=== PATIENT | female | born 1945 | race Caucasian/White ===

== ENCOUNTER → 2016-12-07 | Outpatient (CLI) | payer MEDICARE ==
[~2016-12-07] MED LIST: /PRAV20TA; ALEN10TA2; CALCCHW12; LISI10TA4; MULTIVIT; TYLE167L PO; VITAMIN D50000 UNT
--- NOTE | 2016-12-07 19:53 | REPMRS ---
Patient History The patient states she had a clinical breast exam in 12/19 Patient is postmenopausal. Family history of prostate cancer in father at age 50 or over. Digital Woman Screen Mammo: December 07, 2016 - Exam #: [id number] Bilateral CC and MLO view(s) were taken. Technologist: Jacklyn Parekh, Technologist Prior study comparison: July 01, 2014, digital woman screen mammo performed at [facility]. May 22, 2013, digital woman screen mammo performed at [facility]. May 08, 2012, digital woman screen mammo performed at [facility]. FINDINGS: There are scattered fibroglandular densities. There has been no change in the appearance of the mammogram from the prior studies. A right-sided ventriculoperitoneal shunt catheter overlies the medial aspect of the right breast as before. There is a mild amount of scattered fibroglandular density which is fairly symmetric. There is no interval development of dominant mass, architectural distortion, or clustered microcalcification suggestive of malignancy. ASSESSMENT: BI-RADS/ACR category 1 mammogram. Negative. Recommendation Routine screening mammogram in 1 year (for women over age 40). This mammogram was interpreted with the aid of an FDA-approved computer-aided dectection system. Electronically Signed By: Prasanna Peter MD 12/07/161951
== END ==
LOC: M WHC 10:14
PROVIDERS: ATTEND Nurse Practitioner Women's Health
DX: Z01.419 Encounter for gynecological examination (general) (routine) without abnormal findings (principal); Z12.31 Encounter for screening mammogram for malignant neoplasm of breast; Z78.0 Asymptomatic menopausal state; Z12.12 Encounter for screening for malignant neoplasm of rectum; Z80.42 Family history of malignant neoplasm of prostate
CPT/HCPCS: 82270; G0101; G0202

== ENCOUNTER 2017-11-03 07:51 | Day surgery (SDC) | payer MEDICARE ==
[2017-11-03] MEDS: NS 1,000 ML IV ×2 (08:15)
[2017-11-03] MEDS ORDERED: PROPOFOL 200 MG/20 ML VIAL As Ordered ×4 (08:15→09:01)
[2017-11-03] MEDS ORDERED: LIDOCAINE 2% INJ 100 MG/5 ML SDV (FOR ANES.) As Ordered ×2 (08:36)
== END 2017-11-03 09:30 | disposition home or self-care (01) ==
LOC: M OPP 07:51
DX: Z12.11 Encounter for screening for malignant neoplasm of colon (principal); Z86.010 Personal history of colon polyps; D12.2 Benign neoplasm of ascending colon; D12.5 Benign neoplasm of sigmoid colon; K57.30 Diverticulosis of large intestine without perforation or abscess without bleeding; Z98.890 Other specified postprocedural states; E78.5 Hyperlipidemia, unspecified; M19.90 Unspecified osteoarthritis, unspecified site; M81.0 Age-related osteoporosis without current pathological fracture; Z78.0 Asymptomatic menopausal state; J44.9 Chronic obstructive pulmonary disease, unspecified; Z86.69 Personal history of other diseases of the nervous system and sense organs; F17.210 Nicotine dependence, cigarettes, uncomplicated; Z79.899 Other long term (current) drug therapy; Z80.42 Family history of malignant neoplasm of prostate
CPT/HCPCS: 45385

== ENCOUNTER → 2019-02-14 | Outpatient (CLI) | payer MEDICARE ==
[~2019-02-14] MED LIST changes: -/PRAV20TA; +ACET-683 PO; +ADV250INH INH; +CALC600T31 PO; +PRAV1TAB39; +SIMV20TA2 PO; +TRAZ-252 PO
--- NOTE | 2019-02-14 13:56 | REP ---
LEFT FOOT SERIES: Four views of the left foot performed. There is a nondisplaced transverse fracture of the base of the fifth metatarsal. No other acute fracture or dislocation is seen. There appear to be two tiny metallic foreign bodies in the soft tissues at the plantar aspect of the fifth proximal phalanx. Electronically Signed by Jimenez Bearden MD 02/14/2019 04:44 P
== END ==
LOC: M LRY 12:51
PROVIDERS: ATTEND Nurse Practitioner Family
DX: S92.355A Nondisplaced fracture of fifth metatarsal bone, left foot, initial encounter for closed fracture (principal); W10.9XXA Fall (on) (from) unspecified stairs and steps, initial encounter; Y92.9 Unspecified place or not applicable
CPT/HCPCS: 73630; G0463

== ENCOUNTER → 2021-03-29 | Outpatient (CLI) | payer MEDICARE ==
[~2021-03-29] MED LIST changes: -SIMV20TA2 PO; +SIMV20TA22 PO
== END ==
LOC: M LABSMTC 10:57
PROVIDERS: ATTEND Anesthesiology
DX: Z01.812 Encounter for preprocedural laboratory examination (principal); Z20.822 Contact with and (suspected) exposure to COVID-19

== ENCOUNTER 2021-04-02 07:41 | Day surgery (SDC) | payer MEDICARE ==
[~2021-04-02] VITALS: Ht 154.9 cm; Wt 54.4 kg
[~2021-04-02 07:41] MED LIST changes: +NS 1,000 ML IV ONE; +SIMETHICONE 40MG/0.6ML DROPS 30ML As Ordered ONE
[2021-04-02] MEDS ORDERED: propofoL 200 MG/20 ML VIAL As Ordered ONE (08:36)
[2021-04-02] MEDS ORDERED: LIDOCAINE 2% 100MG/5ML SDV (FOR ANES.) As Ordered ONE (08:36)
--- NOTE | 2021-04-02 09:20 | ROOR ---
Patient Name: Rosemarie Maddox Procedure Date: 04/02/2021 8:49 AM Date of : 1945 Age: 76 Room: [facility] Gender: Female Note Status: Finalized Procedure: Colonoscopy Indications: High risk colon cancer surveillance: Personal history of colonic polyps Providers: Len Garcia MD Referring MD: Arsen Wong Requesting Provider: Medicines: Monitored Anesthesia Care Complications: No immediate complications. Procedure: Pre-Anesthesia Assessment: - The heart rate, respiratory rate, oxygen saturations, blood pressure, adequacy of pulmonary ventilation, and response to care were monitored throughout the procedure. The Colonoscope was introduced through the anus and advanced to the terminal ileum, with identification of the appendiceal orifice and IC valve. The colonoscopy was performed without difficulty. The patient tolerated the procedure well. The quality of the bowel preparation was good. Findings: The perianal and digital rectal examinations were normal. Three sessile polyps were found in the sigmoid colon, splenic flexure and ileocecal valve. The polyps were small in size. These polyps were removed with a cold snare. Resection and retrieval were complete. Multiple medium-mouthed diverticula were found in the sigmoid colon. There was narrowing of the colon in association with the diverticular opening. Small Internal Hemorrhoids. A tattoo was seen in the distal descending colon. The tattoo site appeared normal. The exam was otherwise without abnormality on direct and retroflexion views. Impression: - Three small polyps in the sigmoid colon, at the splenic flexure and at the ileocecal valve, removed with a cold snare. Resected and retrieved. - Mild diverticulosis in the sigmoid colon. There was narrowing of the colon in association with the diverticular opening. - Small Internal Hemorrhoids. - A tattoo was seen in the distal descending colon. The tattoo site appeared normal. - The examination was otherwise normal on direct and retroflexion views. Recommendation: - Telephone endoscopist for pathology results in 2 weeks. - If the pathology report reveals adenomatous tissue, then repeat the colonoscopy for surveillance based on pathology results in 3 - 5 years. Procedure Code(s): --- Professional --- 61548, Colonoscopy, flexible; with removal of tumor(s), polyp(s), or other lesion(s) by snare technique Diagnosis Code(s): --- Professional --- K57.30, Diverticulosis of large intestine without perforation or abscess without bleeding K63.5, Polyp of colon Z86.010, Personal history of colonic polyps CPT copyright 2019 [employer]. All rights reserved. The codes documented in this report are preliminary and upon nozzleman review may be revised to meet current compliance requirements. Len Garcia MD Len Garcia MD 04/02/2021 9:19:49 AM Electronically signed by Len Garcia MD Number of Addenda: 0 Note Initiated On: 04/02/2021 8:49 AM Estimated Blood Loss: Estimated blood loss: none.
[2021-04-02 09:43] VITALS: BP 134/66
== END 2021-04-02 11:10 | disposition home or self-care (01) ==
LOC: M OPP 07:41
PROVIDERS: ATTEND Internal Medicine Gastroenterology
DX: Z12.11 Encounter for screening for malignant neoplasm of colon (principal); Z86.010 Personal history of colon polyps; K63.5 Polyp of colon; K57.30 Diverticulosis of large intestine without perforation or abscess without bleeding; K64.8 Other hemorrhoids; J44.9 Chronic obstructive pulmonary disease, unspecified; F17.210 Nicotine dependence, cigarettes, uncomplicated; Z79.899 Other long term (current) drug therapy